=== PATIENT | female | born 1990 | race Caucasian/White ===

== ENCOUNTER 2016-09-22 20:32 | Emergency (ER) | payer OTHER ==
[2016-09-22 21:25] VITALS: BP 147/80; PULSE 85; RESP 16; TEMP 98.2; O2SAT 99
[2016-09-22] MEDS ORDERED: IBUPROFEN 200 MG TAB PO ONE (21:30)
--- NOTE | 2016-09-22 21:57 | DX ---
Knee 3 Views Right History: Trauma. Pain. Comparison exam: None available. Findings: Normal alignment. Joint spaces are maintained. No fracture or joint effusion. Impression: Negative right knee radiographs.
[2016-09-22] MEDS ORDERED: HYDROCOD/APAP 5/325 PREPACK#6 BTL TAKEHOME ONE (22:11)
--- NOTE | 2016-09-22 22:15 | UCPHY ---
H & P Time Seen by Provider: 09/22/16 21:30 Patient Type: New HPI/ROS: This patient slipped on ice with a valgus mechanism injury to the right knee. She reports moderate medial knee pain associated with this new feeling of slight instability since the injury occurred yesterday. She has partial improvement from ibuprofen but notes no other exacerbating factors. She states the pain is mild at baseline becomes moderate with walking or bending of the knee. ROS: No other injuries from the fall. Neuro: No numbness or tingling cardiovascular: No complaints 5 point ROS is otherwise negative. Past Medical/Surgical History: Otherwise healthy Smoking Status: Never smoked Physical Exam: Physical Exam Vital signs are normal. General: No acute distress HEENT: Atraumatic. Eyes: Pupils equal and react to light. Extraocular motions are intact. Lungs: No respiratory distress. Cardiac: Brisk capillary refill is intact throughout. Pulses are 2+ and symmetric in the affected extremity. Skin: No rash or pallor. Extremities: Atraumatic normal except for right knee Right knee: Patient has medial tenderness at the MCL region. Siri's is negative for laxity. Varus stress without increased pain or laxity. Valgus with increasing pain no significant laxity noted the patient is guarding quite a bit since difficulty neck assessment of this. No patellar anxiety. No significant calf swelling. No ecchymosis. No significant knee effusion. Neuro: Alert and oriented x3 with no sensorimotor deficits. Initial differential diagnosis: MCL sprain, medial meniscal injury, fracture, contusion Constitutional: Initial Vital Signs Temperature (C) 36.8 C 09/22/16 21:23 Heart Rate 85 09/22/16 21:23 Respiratory Rate 16 09/22/16 21:23 Blood Pressure 147/80 H 09/22/16 21:23 O2 Sat (%) 99 09/22/16 21:23 O2 Delivery Mode Room Air Allergies/Adverse Reactions: No Known Allergies Allergy (Unverified 12/14/11 04:27) Home Medications: Medication Instructions Recorded Bupropion HCl [Bupropion XL] 150 mg PO 12/14/11 Ondansetron Odt [Zofran Odt] 4 - 8 mg PO Q4PRN PRN #15 tab 12/14/11 Trisprintec 12/14/11 Hydrocodone/APAP 5/325 [[place] 1 - 2 tab PO Q4PRN PRN #20 tab 09/22/16 5/325 (*)] MDM/Departure - MDM Diagnostics: Knee x-ray: Negative by my interpretation Medications Given: Discontinued Medications Acetaminophen/Hydrocodone Bitart ([place] 5/325mg Prepack#6) 1 btl TAKEHOME EDNOW ONE Stop: 09/22/16 22:12 Last Admin: 09/22/16 22:22 Dose: 1 btl Ibuprofen (Motrin) 600 mg PO EDNOW ONE Stop: 09/22/16 21:31 Last Admin: 09/22/16 21:45 Dose: 600 mg ED Course/Re-evaluation: Patient is placed in knee immobilizer. I counseled her regarding MCL sprain. She will follow up with Orthopedics for further evaluation - Depart Disposition: Home, Routine, Self-Care Clinical Impression: Knee MCL sprain Qualifiers: Encounter type: initial encounter Laterality: right Qualifier Code: (S83.411A) Sprain of medial collateral ligament of right knee, initial encounter Condition: Fair Instructions: Knee Sprain (ED), Knee Immobilizer (ED), Crutch Instructions (ED) Additional Instructions: Diagnosis: Or right knee MCL sprain Plan: Ibuprofen-600 mg per 6 hours as needed Tylenol in addition if needed or Vicodin. No driving, alcohol or come Vicodin Ice to 3 times a day until symptoms improve Knee immobilizer never your up and about in use crutches. Call the orthopedic doctor-made an to arrange follow-up appointment for sometime within the next 3-5 days Consider the hinged knee brace (can pick it up at [facility] splint supplies - in [place] - call prior to going) before seeing Dr. josue down if the knee immobilizer is bothering You. Limit activity Stand Alone Forms: Work Excuse Prescriptions: Hydrocodone/APAP 5/325 [[place] 5/325 (*)] 1 - 2 tab PO Q4PRN PRN #20 tab PRN Reason: Pain Referrals: NONE *PRIMARY CARE P,. [Primary Care Provider] - As per Instructions Yasmani Patino MD [Medical Doctor] - As per Instructions - PQRS PQRS Measurement: NA
== END 2016-09-22 22:38 | disposition home or self-care (01) ==
LOC: CED 20:32
DX: S83.411A Sprain of medial collateral ligament of right knee, initial encounter (principal); W00.0XXA Fall on same level due to ice and snow, initial encounter
CPT/HCPCS: 73562-PO; G0463-PO; L1830

== ENCOUNTER 2018-09-28 03:34 | Emergency (ER) | payer MEDICAID, OTHER ==
[2018-09-28] MEDS ORDERED: ONDANSETRON 4 MG/2 ML VIAL IVP ONE (03:42)
[2018-09-28] MEDS ORDERED: NS 1,000 ML IV ONE ×3 (03:42→05:46)
[2018-09-28] MEDS ORDERED: ONDANSETRON 4 MG/2 ML VIAL ONE (03:42)
--- NOTE | 2018-09-28 03:42 | EDPHY ---
H & P Stated Complaint: upper abd pain, N/V/D since 2299 Time Seen by Provider: 09/28/18 03:42 HPI/ROS: HPI CHIEF COMPLAINT: Nausea vomiting diarrhea. HISTORY OF PRESENT ILLNESS: Very pleasant 28-year-old female presents emergency room nausea vomiting diarrhea. Nonbloody. No fever. States this woke her from sleep suddenly around 2:00 a.m.. It is now 4:00 a.m.. Watery diarrhea, nonbloody vomiting. No fever. Denies any significant abdominal pain. She does report that she has history of Crohn's disease but does not feel that this is related. Denies fever, denies back pain, denies chest pain or shortness of breath, denies urinary symptoms. Past Medical History: Crohn's disease Past Surgical History: Abdominal surgery with intestinal removal. Small-bowel removal. Social History: Denies drugs alcohol tobacco. Family History: Noncontributory ROS REVIEW OF SYSTEMS: 10 Systems were reviewed and negative with the exception of the elements mentioned in the history of present illness. Exam Constitutional nontoxic no acute distress triage nursing summary reviewed, vital signs reviewed, awake/alert. Vital signs stable Eyes normal conjunctivae and sclera, EOMI, PERRLA. HENT normal inspection, atraumatic, moist mucus membranes, no epistaxis, neck supple/ no meningismus, no raccoon eyes. Respiratory clear to auscultation bilaterally, normal breath sounds, no respiratory distress, no wheezing. Cardiovascular rate normal, regular rhythm, no murmur, no edema, distal pulses normal. Gastrointestinal soft, non-tender, no rebound, no guarding, normal bowel sounds, no distension, no pulsatile mass. Genitourinary no CVA tenderness. Musculoskeletal no midline vertebral tenderness, full range of motion, no calf swelling, no tenderness of extremities, no meningismus, good pulses, neurovascularly intact. Skin pink, warm, & dry, no rash, skin atraumatic. Neurologic awake, alert and oriented x 3, AAOx3, moves all 4 extremities equally, motor intact, sensory intact, CN II-XII intact, normal cerebellar, normal vision, normal speech. Psychiatric normal mood/affect. Heme/Lymph/Immune no lymphadenopathy. Differential Diagnosis: Differential diagnosis includes but is not limited to and in no particular order: Bowel obstruction, appendicitis, gallbladder disease, diverticulitis, colitis, enteritis, perforated viscus, gastritis, GERD , esophagitis, urinary tract infection, pyelonephritis, kidney stones Medical Decision Making: Plan for this patient IV establishment with IV fluid bolus, Zofran for nausea, basic blood work, electrolytes, re-evaluate Re-evaluation: 0547: Patient re-evaluated this time still has ongoing abdominal pain nausea and feels like she is going to vomit further. She has received 2 L of fluid here, IV Zofran. Plan will be for 3rd L fluid and IV Phenergan. Given her history of Crohn's disease and ongoing nausea vomiting and abdominal pain will proceed with CT scan abdomen pelvis with IV contrast. She has agreed with this. 0655: CT scan abdomen pelvis with IV contrast called to me by direct Radiology and faxed to me at time 6:44 a.m.. Shows nondilated fluid filled loops of small and large bowel suggesting enteritis. 0708: Patient re-evaluated this time resting comfortably abdomen soft nontender. She is not vomiting feels much better would like to go home. The patient CT scan shows enteritis. Patient like to go home. I discussed return precautions with her she understands return emergency room she develops worsening abdominal pain, fever, vomiting. Source: Patient - Personal History Current Tetanus/Diphtheria Vaccine: Yes Current Tetanus Diphtheria and Acellular Pertussis (TDAP): Yes - Medical/Surgical History Hx Asthma: No Hx Chronic Respiratory Disease: No Hx Diabetes: No Hx Cardiac Disease: No Hx Renal Disease: No Hx Cirrhosis: No Hx Alcoholism: No Hx HIV/AIDS: No Hx Splenectomy or Spleen Trauma: No Other PMH: chrons, anxiety - Social History Smoking Status: Never smoked Constitutional: Initial Vital Signs Temperature (C) 36.5 C 09/28/18 03:36 Heart Rate 98 09/28/18 03:36 Respiratory Rate 20 09/28/18 03:36 Blood Pressure 127/70 H 09/28/18 03:36 O2 Sat (%) 97 09/28/18 03:36 O2 Delivery Mode Room Air Allergies/Adverse Reactions: No Known Allergies Allergy (Unverified 09/28/18 03:34) Home Medications: Medication Instructions Recorded Adalimumab [Humira] 09/28/18 FLUoxetine [Prozac 10 MG (*)] 09/28/18 Medical Decision Making - Data Points Laboratory Results: Laboratory Results 09/28/18 03:50 09/28/18 03:50 09/28/18 09/28/18 09/28/18 04:40 03:50 03:50 WBC RBC Hgb Hct MCV MCH MCHC RDW Plt Count MPV Neut % (Auto) Lymph % (Auto) [place] % (Auto) Eos % (Auto) Baso % (Auto) Nucleat RBC Rel Count Absolute Neuts (auto) Absolute Lymphs (auto) Absolute Monos (auto) Absolute Eos (auto) Absolute Basos (auto) Absolute Nucleated RBC Immature Gran % Immature Gran # Sodium 140 mEq/L mEq/L (135-145) Potassium 3.5 mEq/L mEq/L (3.5-5.2) Chloride 106 mEq/L mEq/L (97-110) Carbon Dioxide 21 mEq/l L mEq/l (22-31) Anion Gap 13 mEq/L mEq/L (6-14) BUN 13 mg/dL mg/dL (7-23) Creatinine 0.8 mg/dL mg/dL (0.6-1.0) Estimated GFR > 60 Glucose 181 mg/dL H mg/dL (70-100) Calcium 9.3 mg/dL mg/dL (8.5-10.4) Total Bilirubin 1.2 mg/dL mg/dL (0.1-1.4) Conjugated Bilirubin 0.4 mg/dL mg/dL (0.0-0.5) Unconjugated Bilirubin 0.8 mg/dL mg/dL (0.0-1.1) AST 21 IU/L IU/L (14-46) ALT 23 IU/L IU/L (9-52) Alkaline Phosphatase 68 IU/L IU/L (38-126) Total Protein 8.0 g/dL g/dL (6.3-8.2) Albumin 4.8 g/dL g/dL (3.5-5.0) Lipase 88 IU/L IU/L (23-300) Beta HCG, Qual NEGATIVE Urine Color YELLOW Urine Appearance CLEAR Urine pH 5.0 (5.0-7.5) Ur Specific [place] 1.021 (1.002-1.030) Urine Protein NEGATIVE (NEGATIVE) Urine Ketones 1+ H (NEGATIVE) Urine Blood NEGATIVE (NEGATIVE) Urine Nitrate NEGATIVE (NEGATIVE) Urine Bilirubin NEGATIVE (NEGATIVE) Urine Urobilinogen NEGATIVE EU EU (0.2-1.0) Ur Leukocyte Esterase NEGATIVE (NEGATIVE) Urine Glucose NEGATIVE (NEGATIVE) 09/28/18 03:50 WBC 13.31 10^3/uL H 10^3/uL (3.80-9.50) RBC 5.83 10^6/uL H 10^6/uL (4.18-5.33) Hgb 16.5 g/dL H g/dL (12.6-16.3) Hct 49.5 % H % (38.0-47.0) MCV 84.9 fL fL (81.5-99.8) MCH 28.3 pg pg (27.9-34.1) MCHC 33.3 g/dL g/dL (32.4-36.7) RDW 13.3 % % (11.5-15.2) Plt Count 214 10^3/uL 10^3/uL (150-400) MPV 10.5 fL fL (8.7-11.7) Neut % (Auto) 86.6 % H % (39.3-74.2) Lymph % (Auto) 6.5 % L % (15.0-45.0) [place] % (Auto) 5.7 % % (4.5-13.0) Eos % (Auto) 0.5 % L % (0.6-7.6) Baso % (Auto) 0.5 % % (0.3-1.7) Nucleat RBC Rel Count 0.0 % % (0.0-0.2) Absolute Neuts (auto) 11.53 10^3/uL H 10^3/uL (1.70-6.50) Absolute Lymphs (auto) 0.87 10^3/uL L 10^3/uL (1.00-3.00) Absolute Monos (auto) 0.76 10^3/uL 10^3/uL (0.30-0.80) Absolute Eos (auto) 0.06 10^3/uL 10^3/uL (0.03-0.40) Absolute Basos (auto) 0.06 10^3/uL 10^3/uL (0.02-0.10) Absolute Nucleated RBC 0.00 10^3/uL 10^3/uL (0-0.01) Immature Gran % 0.2 % % (0.0-1.1) Immature Gran # 0.03 10^3/uL 10^3/uL (0.00-0.10) Sodium Potassium Chloride Carbon Dioxide Anion Gap BUN Creatinine Estimated GFR Glucose Calcium Total Bilirubin Conjugated Bilirubin Unconjugated Bilirubin AST ALT Alkaline Phosphatase Total Protein Albumin Lipase Beta HCG, Qual Urine Color Urine Appearance Urine pH Ur Specific [place] Urine Protein Urine Ketones Urine Blood Urine Nitrate Urine Bilirubin Urine Urobilinogen Ur Leukocyte Esterase Urine Glucose Medications Given: Discontinued Medications Sodium Chloride (Ns) 1,000 mls @ 0 mls/hr IV EDNOW ONE; Wide Open PRN Reason: Protocol Stop: 09/28/18 03:43 Last Admin: 09/28/18 03:50 Dose: 1,000 mls Sodium Chloride (Ns) 1,000 mls @ 0 mls/hr IV EDNOW ONE; Wide Open PRN Reason: Protocol Stop: 09/28/18 03:43 Last Admin: 09/28/18 03:51 Dose: 1,000 mls Sodium Chloride (Ns) 1,000 mls @ 0 mls/hr IV ONCE ONE PRN Reason: Wide Open Stop: 09/28/18 05:47 Last Admin: 09/28/18 05:51 Dose: 1,000 mls Ondansetron HCl (Zofran) 4 mg IVP EDNOW ONE Stop: 09/28/18 03:43 Last Admin: 09/28/18 03:50 Dose: 4 mg Promethazine HCl (Phenergan) 6.25 mg IVP ONCE ONE Stop: 09/28/18 05:47 Last Admin: 09/28/18 05:50 Dose: 6.25 mg Departure - Departure Disposition: Home, Routine, Self-Care Clinical Impression: Abdominal pain Qualifiers: Abdominal location: unspecified location Qualified Code(s): R10.9 - Unspecified abdominal pain Vomiting Qualifiers: Vomiting type: unspecified Vomiting Intractability: non-intractable Nausea presence: with nausea Qualified Code(s): R11.2 - Nausea with vomiting, unspecified Diarrhea Qualifiers: Diarrhea type: unspecified type Qualified Code(s): R19.7 - Diarrhea, unspecified Condition: Good Instructions: Dehydration (ED), Acute Nausea and Vomiting (ED), Acute Diarrhea (ED) Additional Instructions: 1. [place] diet today. No spicy fatty greasy foods. 2. Return emergency room if there is worsening abdominal pain, fever, vomiting. Referrals: NONE *PRIMARY CARE P,. [Primary Care Provider] - As per Instructions
[2018-09-28 04:04] LABS: PLATELET COUNT 214 10^3/uL (150-400)
[2018-09-28] MEDS ORDERED: PROMETHAZINE HCL 25 MG/ML INJ ONE (05:46)
[2018-09-28] MEDS ORDERED: PROMETHAZINE HCL 25 MG/ML INJ IVP ONE (05:46)
[2018-09-28] MEDS ORDERED: IOHEXOL 300 mgI/ML (OMNIPAQUE) 150 ML BTL IV ONE (06:09)
[2018-09-28 07:29] VITALS: BP 110/68
== END 2018-09-28 07:30 | disposition home or self-care (01) ==
DX: R11.2 Nausea with vomiting, unspecified (principal); R19.7 Diarrhea, unspecified; R10.9 Unspecified abdominal pain; E86.9 Volume depletion, unspecified; K50.90 Crohn's disease, unspecified, without complications; F41.9 Anxiety disorder, unspecified; Z90.49 Acquired absence of other specified parts of digestive tract
CPT/HCPCS: 96374; J2405; J2550; Q9967